=== PATIENT | female | born 1955 | race Two or more races ===

== ENCOUNTER 2022-08-11 13:13 | Emergency (ER) | payer BC, OTHER ==
[~2022-08-11] VITALS: Ht 175.3 cm; Wt 70.5 kg
[2022-08-11] MEDS ORDERED: FUROSEMIDE 100 MG/10ML VIAL IV ONE (13:30)
[2022-08-11 14:23] LABS: Basophils # (auto) 0 10 ^3/uL (0-0.2); Eosinophils # (auto) 0 10 ^3/uL (0-0.8); Eosinophils % (auto) 0.3 % (0.0-7.0); Lymphocytes # (auto) 0.7 10 ^3/uL (0.4-5.4); Mean Corpuscular Hgb Conc. 32.6 g/dL (32.0-36.0); Monocytes # (auto) 0.4 10 ^3/uL (0-1.3); Neutrophils # (auto) 4.4 10 ^3/uL (1.6-8.6); Nucleated Red Blood Cells % 0.3 %; White Blood Cell 5.6 10^3/uL (4.4-10.8)
[2022-08-11 14:25] LABS: Basophils % (auto) 0.5 % (0.0-2.0); Hematocrit 45.2 % (36.0-46.0); Hemoglobin 14.7 g/dL (12.2-16.2); Lymphocytes % (auto) 13.1 % (10.0-50.0); Mean Corpuscular Hemoglobin 34.4 pg (28.0-32.0); Mean Corpuscular Volume 105.6 fL (80.0-100.0); Neutrophils % (auto) 79.1 % (37.0-80.0); Red Blood Cells 4.28 10^6/uL (4.0-5.20); Red Cell Distribution Width 15.3 % (11.8-14.3)
[2022-08-11 14:42] LABS: Albumin 3.3 g/dL (3.4-5.0); BUN/Creatinine Ratio 23.2; Calcium 9.3 mg/dL (8.5-10.1); Potassium 4.8 mmol/L (3.5-5.1)
[2022-08-11 14:45] LABS: Bilirubin, Total 1.9 mg/dL (0.2-1.0)
[2022-08-11] MEDS ORDERED: ASPirin-EC 325mg tab PO ONE (15:00)
[2022-08-11 17:10] VITALS: BP 126/46
[2022-08-11] MEDS ORDERED: HYDROcodone-ACET 5/325MG TAB PO ONE (17:45)
[2022-08-11] MEDS ORDERED: BUME2TAB5 PO (18:07)
[2022-08-11] MEDS ORDERED: POTA10TA32 PO (18:08)
[2022-08-11] MEDS ORDERED: HYDR-4902 PO (18:09)
== END 2022-08-11 21:52 | disposition home or self-care (01) ==
LOC: ER 13:13 → EDBD 13:13 → ER 21:40
DX: I50.9 Heart failure, unspecified (principal); I11.0 Hypertensive heart disease with heart failure; R06.02 Shortness of breath; D25.9 Leiomyoma of uterus, unspecified; R10.9 Unspecified abdominal pain; R79.89 Other specified abnormal findings of blood chemistry
CPT/HCPCS: 36415; 36600; 71045; 74176; 80053; 82805; 83605; 83690; 83880; 84484; 85025; 93005

== ENCOUNTER 2022-09-29 16:00 | Emergency (ER) | payer BC ==
[~2022-09-29] VITALS: Ht 175.3 cm; Wt 75.0 kg
[~2022-09-29 16:00] MED LIST: BUME2TAB5 PO; HYDR-4902 PO; POTA10TA32 PO
[2022-09-29] MEDS ORDERED: MORPHINE SULFATE 4 MG/ML SYR/VIAL IM ONE (20:00)
[2022-09-29 20:41] VITALS: BP 136/82
[2022-09-29 21:11] LABS: Basophils # (auto) 0 10 ^3/uL (0-0.2); Eosinophils # (auto) 0.7 10 ^3/uL (0-0.8); Eosinophils % (auto) 14.3 % (0.0-7.0); Hematocrit 36.2 % (36.0-46.0); Hemoglobin 11.6 g/dL (12.2-16.2); Lymphocytes # (auto) 1.3 10 ^3/uL (0.4-5.4); Lymphocytes % (auto) 28.6 % (10.0-50.0); Mean Corpuscular Hemoglobin 31.3 pg (28.0-32.0); Mean Corpuscular Hgb Conc. 32.1 g/dL (32.0-36.0); Mean Corpuscular Volume 97.6 fL (80.0-100.0); Monocytes # (auto) 0.3 10 ^3/uL (0-1.3); Monocytes % (auto) 7.1 % (0.0-12.0); Neutrophils # (auto) 2.3 10 ^3/uL (1.6-8.6); Nucleated Red Blood Cells % 0.1 %; Red Blood Cells 3.71 10^6/uL (4.0-5.20); Red Cell Distribution Width 17.9 % (11.8-14.3); White Blood Cell 4.7 10^3/uL (4.4-10.8)
[2022-09-29 21:31] LABS: BUN/Creatinine Ratio 23.6; Calcium 9.4 mg/dL (8.5-10.1); Potassium 3.9 mmol/L (3.5-5.1)
[2022-09-29 21:34] LABS: Bilirubin, Total 1.2 mg/dL (0.2-1.0); Total Protein 7.4 g/dL (6.4-8.2)
== END 2022-09-30 01:05 | disposition left against medical advice (07) ==
LOC: EDBD 16:00 → ER 16:05
DX: D25.9 Leiomyoma of uterus, unspecified (principal); I11.0 Hypertensive heart disease with heart failure; I50.9 Heart failure, unspecified; Z79.899 Other long term (current) drug therapy
CPT/HCPCS: 36415; 74176; 76856; 80053; 85025; 96372; 99285; J2270